=== PATIENT | female | born 1980 | race Asian ===

== ENCOUNTER 2018-03-24 21:44 | Emergency (ER) | payer BC | END 2018-03-24 22:18 | disposition home or self-care (01) | LOC: ER 21:44 | DX: S50.861A Insect bite (nonvenomous) of right forearm, initial encounter (principal); L03.113 Cellulitis of right upper limb; Z88.2 Allergy status to sulfonamides; Z88.5 Allergy status to narcotic agent; W57.XXXA Bitten or stung by nonvenomous insect and other nonvenomous arthropods, initial encounter; Y93.89 Activity, other specified; Y92.89 Other specified places as the place of occurrence of the external cause; Y99.8 Other external cause status | CPT/HCPCS: 99283 ==

== ENCOUNTER 2018-03-25 16:06 | Emergency (ER) | payer BC ==
[2018-03-25] MEDS: cefTRIAXone IM 1 GM VIAL IM (17:01)
== END 2018-03-25 17:15 | disposition home or self-care (01) ==
LOC: ER 16:06
DX: L02.511 Cutaneous abscess of right hand (principal); Z98.890 Other specified postprocedural states; Z88.2 Allergy status to sulfonamides; Z88.5 Allergy status to narcotic agent
CPT/HCPCS: 96372; 99283; J0696

== ENCOUNTER 2018-05-06 17:39 | Emergency (ER) | payer BC ==
[~2018-05-06] VITALS: Ht 154.9 cm; Wt 61.2 kg
[~2018-05-06 17:39] MED LIST: CEPH500C PO; DOXY100T PO
[2018-05-06] MEDS ORDERED: CLIN300C8 PO (19:41)
--- NOTE | 2018-05-06 19:41 | PHYS DOC ---
Past Medical History Past Medical History: No Pertinent History Past Surgical History: Alcohol Use: Occasionally Drug Use: None Adult General Chief Complaint Chief Complaint: FACE PROBLEM HPI HPI Patient is a 37 year old female who presents with right forehead and right eye swelling and redness Patient noted onset of right forehead swelling and redness just above her right eyebrow 4 days ago. She popped the "pimple" yesterday and since has had more swelling and redness. she denies fevers or blurred vision. Review of Systems Review of Systems Constitutional: Denies fever or chills Eyes: Denies change in visual acuity, redness, or eye pain HENT: Denies nasal congestion or sore throat Respiratory: Denies cough or shortness of breath Cardiovascular: Denies chest pain or palpitations GI: Denies abdominal pain, nausea, vomiting, bloody stools or diarrhea : Denies dysuria or hematuria Musculoskeletal: Denies back pain or joint pain Integument: Denies rash or skin lesions, with right forehead infected comedone Neurologic: Denies headache, focal weakness or sensory changes Endocrine: Denies polyuria or polydipsia All other systems were reviewed and found to be within normal limits, except as documented in this note. Current Medications Current Medications Current Medications Medications (Trade) Dose Ordered Sig/[place] Start Time Stop Time Status Last Admin Dose Admin Acetaminophen (Tylenol) 1,000 mg 1X ONCE 05/06/18 20:45 05/06/18 20:46 DC 05/06/18 20:42 1,000 MG Amlodipine Besylate (Norvasc) 5 mg 1X ONCE 05/07/18 13:30 05/07/18 13:31 DC Clindamycin HCl (Cleocin) 300 mg 1X ONCE 05/07/18 13:30 05/07/18 13:31 DC Diphtheria/ Tetanus/Acell Pertussis (Boostrix) 0.5 ml ONCE ONCE 05/06/18 19:45 05/06/18 19:46 DC 05/06/18 20:02 0.5 ML Allergies Allergies Allergies Coded Allergies Type Severity Reaction Last Updated Verified sulfamethoxazole Allergy Unknown 03/24/18 Yes trimethoprim Allergy Unknown 03/24/18 Yes Physical Exam Physical Exam Constitutional: Well developed, well nourished, no acute distress, non-toxic appearance. HENT: Normocephalic, atraumatic, bilateral external ears normal, oropharynx moist, no oral exudates, nose normal. Right forehead swelling, tenderness and erythema. Eyes: PERRLA, EOMI, conjunctiva normal, no discharge. Neck: Normal range of motion, no tenderness, supple, no stridor. Cardiovascular:Heart rate regular rhythm, no murmur Lungs & Thorax: Bilateral breath sounds clear to auscultation Abdomen: Bowel sounds normal, soft, no tenderness, no masses, no pulsatile masses. Skin: Warm, dry, no erythema, no rash. Back: No tenderness, no CVA tenderness. Extremities: No tenderness, no cyanosis, no clubbing, ROM intact, no edema. Neurologic: Alert and oriented X 3, normal motor function, normal sensory function, no focal deficits noted. seam feller II-XII intact, no pronator drift, strength 5/5 UE/LE symmetric bilaterally equal and symmetric, sensation intact to light touch and position sense BUE symmetric bilaterally. Gait normal. Psychologic: Affect normal, judgement normal, mood normal. Current Patient Data Vital Signs Vital Signs Date Time Temp Pulse Resp B/P (MAP) Pulse Ox O2 Delivery O2 Flow Rate FiO2 05/06/18 20:43 62 16 236/117 (156) 99 05/06/18 20:19 Room Air 05/06/18 19:00 98.0 98.0 Lab Values Laboratory Tests Test 05/06/18 20:05 POC Hemoglobin 13.3 g/dL (12-15) POC Hematocrit 39 % (36-40) POC Sodium 138 mmol/L (135-145) POC Potassium 3.4 mmol/L (3.5-5.0) L POC Chloride 101 mmol/L (98-110) POC Total CO2 26 mmol/L (23-32) Anion Gap 16 mmol/L (6-14) H POC Blood Urea Nitrogen 19 mg/dL (8-26) POC Creatinine 0.6 mg/dL (0.5-1.4) Glucose Level 116 mg/dL (70-99) H POC Ionized Calcium (Thomas) 1.10 mmol/L (1.13-1.32) L Laboratory Tests 05/06/18 20:05 EKG EKG [] Radiology/Procedures Radiology/Procedures [] Course & Med Decision Making Course & Med Decision Making Pertinent Labs and Imaging studies reviewed. (See chart for details) Emergency Department Course Patient presents with right forehead infected comedone DDx- cellulitis, abscess, MRSA Patient was hypertensive in the ED without prior history of HTN. Patient tolerated aspiration of right forehead infected comedone. Chem 8 was unremarkable with normal BUN/Cr. Patient was given Norvasc with improved BP. Neurologic exam normal. Patient has asymptomatic hypertension. Patient given Clindamycin and TDAP IM. Patient given prescriptions for Norvasc and Clindamycin. Patient will follow-up in AM in ED for repeat BP evaluation. Dragon Disclaimer Dragon Disclaimer This electronic medical record was generated, in whole or in part, using a voice recognition dictation system. Departure Departure Impression: Primary Impression: Facial cellulitis Additional Impressions: Hair follicle infection Uncontrolled hypertension Disposition: HOME, SELF-CARE Referrals: NO PCP (PCP) MAGDALENO IGLESIAS MD Follow-up in 2 days for a wound check Patient Instructions: Cellulitis, [id number] Additional Instructions: If you develop worse swelling, pain, fevers, drainage, weakness, chest pain, shortness of breath return to the Emergency department 21:05 Patient called to return to the ED in the morning for a repeat blood pressure evaluation. Scripts Amlodipine Besylate (NORVASC) 5 Mg Tablet 1 TAB PO DAILY MDD 5 for 20 Days, #20 TAB 0 Refills Prov: GODWIN LOPEZ MD 05/06/18 Clindamycin Hcl (CLINDAMYCIN HCL) 300 Mg Capsule 1 CAP PO TID for cellulitis MDD 900 mg for 10 Days, #30 CAP Prov: GODWIN LOPEZ MD 05/06/18 Incision and Drainage Incision and Drainage : I & D Procedure: betadine prep Progress right eyebrow infected comedone was aspirated with 18guage needle with scant blood and pus expressed. Patient tolerated well. Problem Qualifiers GODWIN LOPEZ MD May 06, 2018 19:41
[2018-05-06] MEDS ORDERED: CLINDAMYCIN HCL 150 MG CAPSULE. PO ONE (19:45)
[2018-05-06] MEDS ORDERED: DIPHTH,PERTUSS(ACELL),TET TOX 0.5 ML DISP.SYRIN. VAX IM ONE (19:45)
[2018-05-06] MEDS ORDERED: AMLO5TAB4 PO (19:50)
[2018-05-06] MEDS ORDERED: amLODIPine BESYLATE 5 MG TABLET PO ONE (20:00)
[2018-05-06 20:09] LABS: CREATININE ISTAT 0.6 mg/dL (0.5-1.4); HEMOGLOBIN ISTAT 13.3 g/dL (12-15); ION CA ISTAT 1.1 mmol/L (1.13-1.32); POTASSIUM ISTAT 3.4 mmol/L (3.5-5.0)
[2018-05-06 20:43] VITALS: BP 236/117
[2018-05-06] MEDS ORDERED: ACETAMINOPHEN 500 MG TABLET PO ONE (20:45)
[2018-05-07] MEDS ORDERED: CLINDAMYCIN HCL 150 MG CAPSULE. PO ONE (13:30)
[2018-05-07] MEDS ORDERED: amLODIPine BESYLATE 5 MG TABLET PO ONE (13:30)
== END 2018-05-06 20:50 | disposition home or self-care (01) ==
LOC: ER 17:39
DX: L03.211 Cellulitis of face (principal); L73.9 Follicular disorder, unspecified; I10 Essential (primary) hypertension; Z98.890 Other specified postprocedural states; Z88.1 Allergy status to other antibiotic agents; Z88.2 Allergy status to sulfonamides
CPT/HCPCS: 10060; 36415; 80047; 85014; 85018; 90471; 90715; 99284

== ENCOUNTER 2018-05-07 12:54 | Emergency (ER) | payer BC ==
[~2018-05-07] VITALS: Ht 154.9 cm; Wt 61.2 kg
[~2018-05-07 12:54] MED LIST changes: +AMLO5TAB4 PO; +CLIN300C8 PO
--- NOTE | 2018-05-07 13:35 | PHYS DOC ---
Past Medical History Past Medical History: Hypertension Past Surgical History: Alcohol Use: Occasionally Drug Use: None Adult General Chief Complaint Chief Complaint: HYPERTENSION HPI HPI Patient is a 37 year old female whom presents to the ED complaining of high blood pressure x 1 day. Seen in the ED yesterday and released with amlodipine and clindamycin for a right facial cellulitis. She popped a pimple 4 days ago and noticed worsening redness and swelling since then. No change from last night until today. States she has not filled her medications but they are at the pharmacy. States she came back for a BP recheck. States she has not symptom and feels well. Denies chest pain, shortness of breath, vision changes, weakness , dizziness, n/v, abdominal pain, headache, neck pain, jaw pain or palpitations. Review of Systems Review of Systems Constitutional: Denies fever or chills [] Eyes: Denies change in visual acuity, redness, or eye pain [] HENT: Denies nasal congestion or sore throat [] Respiratory: Denies cough or shortness of breath [] Cardiovascular: No additional information not addressed in HPI [] GI: Denies abdominal pain, nausea, vomiting, bloody stools or diarrhea [] : Denies dysuria or hematuria [] Musculoskeletal: Denies back pain or joint pain [] Integument: Complains of pimple to right eyebrow. Denies rash or skin lesions [] Neurologic: Denies headache, focal weakness or sensory changes [] All other systems were reviewed and found to be within normal limits, except as documented in this note. Current Medications Current Medications Current Medications Medications (Trade) Dose Ordered Sig/[facility] Start Time Stop Time Status Last Admin Dose Admin Amlodipine Besylate (Norvasc) 5 mg 1X ONCE 05/07/18 13:45 05/07/18 13:46 DC 05/07/18 13:48 5 MG Clindamycin HCl (Cleocin) 300 mg 1X ONCE 05/07/18 13:45 05/07/18 13:46 DC 05/07/18 13:48 300 MG Allergies Allergies Allergies Coded Allergies Type Severity Reaction Last Updated Verified sulfamethoxazole Allergy Unknown 03/24/18 Yes trimethoprim Allergy Unknown 03/24/18 Yes Physical Exam Physical Exam Constitutional: Well developed, well nourished, no acute distress, non-toxic appearance. [] HENT: Normocephalic, atraumatic, bilateral external ears normal, oropharynx moist, no oral exudates, nose normal. [] Eyes: PERRLA, EOMI, conjunctiva normal, no discharge. [] Neck: Normal range of motion, no tenderness, supple, no stridor. [] Cardiovascular:Heart rate regular rhythm, no murmur [] Lungs & Thorax: Bilateral breath sounds clear to auscultation [] Skin: Warm, dry. pimple (popped) with minimal surrounding erythema to right superior eyebrow. no abscess or fluctuance. No orbital involvement. Neurologic: Alert and oriented X 3, normal motor function, normal sensory function, no focal deficits noted. [] Psychologic: Affect normal, judgement normal, mood normal. [] Current Patient Data Vital Signs Vital Signs Date Time Temp Pulse Resp B/P (MAP) Pulse Ox O2 Delivery O2 Flow Rate FiO2 05/07/18 14:02 72 98 05/07/18 13:48 175/98 05/07/18 13:00 98.2 18 Room Air 98.2 EKG EKG [] Radiology/Procedures Radiology/Procedures [] Course & Med Decision Making Course & Med Decision Making Pertinent Labs and Imaging studies reviewed. (See chart for details) []Patient given her antibiotic, clindamycin, and amlodipine in the ED. Patient states her prescriptions are at the pharmacy and she is going to pick them up. Denies any symptoms at this time. Patients BP improved in the ED. Discussed follow-up for reevaluation of facial cellulitis in 3 days. Discussed reasons to return to the ED. Patient understands and agrees with plan. Family at bedside. Dragon Disclaimer Dragon Disclaimer This electronic medical record was generated, in whole or in part, using a voice recognition dictation system. Departure Departure Impression: Primary Impression: Hypertension Additional Impression: Facial cellulitis Disposition: HOME, SELF-CARE Condition: IMPROVED Referrals: NO PCP (PCP) MAGDALENO IGLESIAS MD Patient Instructions: Cellulitis, Hypertension Problem Qualifiers LALY SHIELDS May 07, 2018 13:35
[2018-05-07] MEDS: CLINDAMYCIN HCL 150 MG CAPSULE. PO ONE (13:48)
[2018-05-07] MEDS: amLODIPine BESYLATE 5 MG TABLET PO ONE (13:48)
[2018-05-07 14:02] VITALS: BP 177/101
== END 2018-05-07 14:05 | disposition home or self-care (01) ==
LOC: ER 12:54
DX: I10 Essential (primary) hypertension (principal); L03.211 Cellulitis of face; Z98.890 Other specified postprocedural states; Z88.2 Allergy status to sulfonamides; Z88.1 Allergy status to other antibiotic agents
CPT/HCPCS: 99283